=== PATIENT | male | born 1990 | race Two or more races ===

== ENCOUNTER 2022-02-11 21:45 | Emergency (ER) | payer OTHER ==
[~2022-02-11] VITALS: Ht 177.8 cm; Wt 95.4 kg
[2022-02-11 23:09] VITALS: BP 137/62
== END 2022-02-12 00:32 | disposition left against medical advice (07) ==
LOC: ER 21:46
DX: L50.9 Urticaria, unspecified (principal); Z53.21 Procedure and treatment not carried out due to patient leaving prior to being seen by health care provider